=== PATIENT | female | born 1970 | race Caucasian/White ===

== ENCOUNTER 2018-01-27 16:16 | Inpatient (IN) | payer MEDICARE, MEDICAID ==
[~2018-01-27] VITALS: Ht 167.6 cm; Wt 77.7 kg
[~2018-01-27 16:16] MED LIST: DYCYCLOMINE; TRIA50CA40
[2018-01-27] MEDS ORDERED: SODIUM CHLORIDE 0.9% 1,000 ML IVB ONE (17:14)
[2018-01-27] MEDS ORDERED: ONDANSETRON HCL 4 MG/2 ML VIAL IV ONE (17:15)
[2018-01-27] MEDS ORDERED: MORPHINE SULF INJ 2 MG/ML SYRINGE 1ML ONE (17:29)
[2018-01-27] MEDS ORDERED: MORPHINE SULF INJ 2 MG/ML SYRINGE 1ML IV ONE ×2 (17:30→18:45)
[2018-01-27 17:33] LABS: Basophils # (auto) 0 uL; Basophils % (auto) 0.2 % (0.0-2.0); Eosinophils # (auto) 0 uL; Hematocrit 46.6 % (36.0-46.0); Hemoglobin 15.6 g/dL (12.2-16.2); Lymphocytes # (auto) 0.8 uL; Lymphocytes % (auto) 6.3 % (10.0-50.0); Mean Corpuscular Hemoglobin 30.3 pg (28.0-32.0); Mean Corpuscular Hgb Conc. 33.5 g/dL (32.0-36.0); Mean Corpuscular Volume 90.3 fL (80.0-100.0); Monocytes # (auto) 0.7 uL; Monocytes % (auto) 5.4 % (0.0-12.0); Neutrophils # (auto) 11.1 uL; Neutrophils % (auto) 88.1 % (37.0-80.0); Nucleated Red Blood Cells % 0.1 %; Platelet Count (auto) 331 10^3/uL (140-450); Red Blood Cells 5.15 10^6/uL (4.0-5.20); Red Cell Distribution Width 13.2 % (11.8-14.3); White Blood Cell 12.6 10^3/uL (4.4-10.8)
[2018-01-27 17:53] LABS: Alanine Aminotransferase 40 U/L (13-56); Albumin 3.6 g/dL (3.4-5.0); Alkaline Phosphatase 164 U/L (45-117); Anion Gap 8 (5-15); Aspartate Aminotransferase 26 U/L (15-37); BUN/Creatinine Ratio 7.1; Blood Urea Nitrogen 8 mg/dL (7-18); Calcium 9.5 mg/dL (8.5-10.1); Carbon Dioxide 34 mmol/L (21-32); Chloride 93 mmol/L (98-107); GFR African American 66 mL/min; GFR Non-African American 55 mL/min; Glucose 132 mg/dL (74-106); Lactic Acid w/Reflex 2.3 mmol/L (0.4-2.0); Potassium 3.4 mmol/L (3.5-5.1); Sodium 135 mmol/L (136-145); Total Protein 8.6 g/dL (6.4-8.2)
[2018-01-27 18:20] LABS: Magnesium 2.4 mg/dL (1.6-2.6)
[2018-01-27] MEDS ORDERED: PROMETHAZINE HCL 25 MG/ML 1ML IV ONE (18:45)
[2018-01-27] MEDS ORDERED: SODIUM CHLORIDE 0.9% 1,000 ML IV ONE (20:45)
[2018-01-27] MEDS ORDERED: cefTRIAXone 1GM/10ml IVPUSH 10 ML IV ONE (20:45)
[2018-01-27 20:50] LABS: INR 0.96 (0.9-1.15); Partial Thromboplastin Time 29.7 sec (23.78-33.04); Prothrombin Time 10.3 sec (9.27-12.13)
[2018-01-27] MEDS ORDERED: ACETAMINOPHEN 500 MG TAB PO PRN (21:45)
[2018-01-27] MEDS ORDERED: MEPERIDINE HCL (25 MG/ML) 1ML VIAL IV ONE ×2 (21:45)
[2018-01-27] MEDS ORDERED: ACETAMINOPHEN 325 MG TAB PO ONE (21:45)
[2018-01-27 22:15] LABS: Urine Bacteria FEW /hpf (None Seen); Urine Blood Negative /uL (Negative); Urine Specific Gravity 1.017 (1.001-1.035); Urine WBC 6 /hpf (0 - 5)
[2018-01-28] MEDS: SODIUM CHLORIDE 0.9% 1,000 ML IV SCH ×2 (00:03→11:05)
[2018-01-28] MEDS: AMITRIPTYLINE HCL 25 MG TAB PO SCH ×2 (00:13→21:40)
[2018-01-28] MEDS: QUEtiapine FUMARATE 100 MG TAB PO SCH ×2 (00:13→21:39)
[2018-01-28] MEDS: GABAPENTIN 300 MG CAP PO SCH ×3 (00:13→21:40)
[2018-01-28] MEDS: metroNIDAZOLE 500MG/100ML 100 ML IV SCH ×4 (00:13→21:40)
[2018-01-28] MEDS: HYDROcodone-ACET 5/325MG TAB PO PRN ×2 (00:34→08:50)
[2018-01-28] MEDS ORDERED: HYDROmorphone HCL 2 MG/ML VL IV ONE (02:00)
[2018-01-28] MEDS: LORazepam 0.5 MG TAB PO PRN ×2 (02:33→20:26)
[2018-01-28] MEDS ORDERED: cloNIDine HCL 0.1 MG TAB PO ONE (05:45)
[2018-01-28] MEDS: LEVOTHYROXINE SODIUM 25 MCG TAB PO SCH ×2 (07:00→08:01)
[2018-01-28 07:05] LABS: Basophils # (auto) 0.1 uL; Basophils % (auto) 0.6 % (0.0-2.0); Eosinophils # (auto) 0.2 uL; Eosinophils % (auto) 1.4 % (0.0-7.0); Hematocrit 41.5 % (36.0-46.0); Lymphocytes % (auto) 15.4 % (10.0-50.0); Mean Corpuscular Hemoglobin 30.6 pg (28.0-32.0); Mean Corpuscular Hgb Conc. 33.7 g/dL (32.0-36.0); Mean Corpuscular Volume 90.8 fL (80.0-100.0); Monocytes # (auto) 1.4 uL; Monocytes % (auto) 10.8 % (0.0-12.0); Neutrophils # (auto) 9.3 uL; Neutrophils % (auto) 71.8 % (37.0-80.0); Platelet Count (auto) 307 10^3/uL (140-450); Red Blood Cells 4.57 10^6/uL (4.0-5.20); Red Cell Distribution Width 13.3 % (11.8-14.3)
[2018-01-28 07:23] LABS: BUN/Creatinine Ratio 11.5; Calcium 8.5 mg/dL (8.5-10.1); Potassium 3.8 mmol/L (3.5-5.1)
[2018-01-28] MEDS: cefTRIAXone 1GM/10ml IVPUSH 10 ML IV SCH (08:50)
[2018-01-28] MEDS ORDERED: MORPHINE SULF INJ 2 MG/ML SYRINGE 1ML IV ONE (10:00)
[2018-01-28] MEDS ORDERED: ONDANSETRON HCL 4 MG/2 ML VIAL IV ONE (10:00)
[2018-01-28] MEDS: TRIAMTERENE/HCTZ 37.5/25 MG CAP/TAB PO SCH (10:23)
[2018-01-28] MEDS ORDERED: VANCOMYCIN PER PHARMACY 0 MG IV SCH (12:15)
[2018-01-28] MEDS: HYDROcodone-ACET 10/325MG TAB PO PRN ×2 (12:27→20:26)
[2018-01-28] MEDS: VANCOMYCIN 1GM/250ML 250 ML IV SCH (13:09)
[2018-01-28] MEDS ORDERED: TIZA4TAB9 PO (15:12)
[2018-01-28] MEDS ORDERED: ALPR1TAB7 PO (15:12)
[2018-01-28] MEDS ORDERED: AMI25T PO (15:12)
[2018-01-28] MEDS ORDERED: PREG75CA PO (15:12)
[2018-01-28] MEDS ORDERED: GABA-339 PO (15:12)
[2018-01-28 17:00] VITALS: BP 166/99
[2018-01-28] MEDS: cloNIDine HCL 0.1 MG TAB PO PRN ×2 (18:59→21:13)
[2018-01-28 20:25] VITALS: BP 162/100
[2018-01-28] MEDS: ONDANSETRON HCL 4 MG/2 ML VIAL IV PRN (20:26)
[2018-01-28] MEDS: TEMAZEPAM 15 MG CAP PO PRN (21:40)
[2018-01-28 22:30] VITALS: BP 162/100
[2018-01-29] MEDS: SODIUM CHLORIDE 0.9% 1,000 ML IV SCH ×2 (02:55→13:45)
[2018-01-29] MEDS: HYDROcodone-ACET 10/325MG TAB PO PRN ×3 (02:57→20:16)
[2018-01-29] MEDS: VANCOMYCIN 1GM/250ML 250 ML IV SCH (02:58)
[2018-01-29 05:28] VITALS: BP 120/81
[2018-01-29] MEDS: metroNIDAZOLE 500MG/100ML 100 ML IV SCH ×2 (05:28→14:00)
[2018-01-29 07:28] LABS: Hematocrit 38.8 % (36.0-46.0); Hemoglobin 12.9 g/dL (12.2-16.2); Mean Corpuscular Hemoglobin 29.8 pg (28.0-32.0); Mean Corpuscular Hgb Conc. 33.1 g/dL (32.0-36.0); Mean Corpuscular Volume 89.9 fL (80.0-100.0); Platelet Count (auto) 334 10^3/uL (140-450); Red Blood Cells 4.32 10^6/uL (4.0-5.20); Red Cell Distribution Width 13.4 % (11.8-14.3); White Blood Cell 12.9 10^3/uL (4.4-10.8)
[2018-01-29 07:37] LABS: Alanine Aminotransferase 35 U/L (13-56); Anion Gap 9 (5-15); Aspartate Aminotransferase 25 U/L (15-37); BUN/Creatinine Ratio 15.1; Blood Urea Nitrogen 11 mg/dL (7-18); Calcium 8.3 mg/dL (8.5-10.1); Carbon Dioxide 25 mmol/L (21-32); Chloride 101 mmol/L (98-107); GFR African American 110 mL/min; GFR Non-African American 91 mL/min; Glucose 98 mg/dL (74-106); Potassium 3.7 mmol/L (3.5-5.1); Sodium 135 mmol/L (136-145)
[2018-01-29 07:42] LABS: Band Neutrophils % (manual) 0; Basophils % (manual) 0 (0.0-2.0); Blast Cells 0; Metamyelocytes % 0; Myelocytes % 0; Promyelocytes % 0
[2018-01-29 07:45] LABS: Alkaline Phosphatase 197 U/L (45-117)
[2018-01-29] MEDS: LEVOTHYROXINE SODIUM 25 MCG TAB PO SCH (07:45)
[2018-01-29 07:47] LABS: Albumin 2.5 g/dL (3.4-5.0)
[2018-01-29 08:00] VITALS: BP 161/108
[2018-01-29] MEDS: MORPHINE SULFATE 4 MG/ML SYR/VIAL IV PRN ×2 (08:40→16:43)
[2018-01-29] MEDS: cefTRIAXone 1GM/10ml IVPUSH 10 ML IV SCH (09:00)
[2018-01-29 10:40] LABS: Eosinophils % (manual) 2 (0-7); Lymphocytes % (manual) 21 (10.0-50.0); Monocytes % (manual) 7 (0-12); Reactive Lymphocytes 2
[2018-01-29] MEDS: GABAPENTIN 300 MG CAP PO SCH ×2 (10:44→21:34)
[2018-01-29] MEDS: TRIAMTERENE/HCTZ 37.5/25 MG CAP/TAB PO SCH (10:45)
[2018-01-29 12:04] VITALS: BP 167/99
[2018-01-29] MEDS ORDERED: VANCOMYCIN 1GM/250ML 250 ML IV SCH (15:00)
[2018-01-29] MEDS: PIPERACILLIN-TAZOB 3.375GM 100 ML IV SCH (19:03)
[2018-01-29 20:07] VITALS: BP 167/89
[2018-01-29] MEDS: LORazepam 0.5 MG TAB PO PRN (20:15)
[2018-01-29] MEDS: ENOXAPARIN SOD 40 MG/0.4 ML SYRINGE SC SCH (20:25)
[2018-01-29] MEDS: AMITRIPTYLINE HCL 25 MG TAB PO SCH (21:34)
[2018-01-29] MEDS: QUEtiapine FUMARATE 100 MG TAB PO SCH (21:34)
[2018-01-29 22:00] VITALS: BP 167/89
[2018-01-29] MEDS: cloNIDine HCL 0.1 MG TAB PO PRN (22:31)
[2018-01-29] MEDS: TEMAZEPAM 15 MG CAP PO PRN (22:31)
[2018-01-30] MEDS: cloNIDine HCL 0.1 MG TAB PO PRN ×4 (00:36→21:33)
[2018-01-30] MEDS: HYDROcodone-ACET 10/325MG TAB PO PRN ×6 (00:36→22:57)
[2018-01-30] MEDS: SODIUM CHLORIDE 0.9% 1,000 ML IV SCH ×2 (03:05→16:25)
[2018-01-30 05:00] VITALS: BP 144/98
[2018-01-30] MEDS: PIPERACILLIN-TAZOB 3.375GM 100 ML IV SCH ×4 (05:43→18:00)
[2018-01-30] MEDS: LEVOTHYROXINE SODIUM 25 MCG TAB PO SCH (06:35)
[2018-01-30 08:00] VITALS: BP 168/105
[2018-01-30 09:00] VITALS: BP 168/105
[2018-01-30] MEDS: ENOXAPARIN SOD 40 MG/0.4 ML SYRINGE SC SCH (10:00)
[2018-01-30] MEDS: TRIAMTERENE/HCTZ 37.5/25 MG CAP/TAB PO SCH (10:47)
[2018-01-30] MEDS: GABAPENTIN 300 MG CAP PO SCH ×2 (10:47→21:08)
[2018-01-30 13:00] VITALS: BP 124/81
[2018-01-30 17:00] VITALS: BP 149/98
[2018-01-30] MEDS: LORazepam 0.5 MG TAB PO PRN ×2 (17:30→22:57)
[2018-01-30] MEDS: AMITRIPTYLINE HCL 25 MG TAB PO SCH (21:08)
[2018-01-30] MEDS: QUEtiapine FUMARATE 100 MG TAB PO SCH (21:09)
[2018-01-30] MEDS: MORPHINE SULFATE 4 MG/ML SYR/VIAL IV PRN (21:32)
[2018-01-30] MEDS: ONDANSETRON HCL 4 MG/2 ML VIAL IV PRN (21:41)
[2018-01-30 22:00] VITALS: BP 162/97
[2018-01-31] MEDS: PIPERACILLIN-TAZOB 3.375GM 100 ML IV SCH ×4 (00:23→17:51)
[2018-01-31] MEDS: TEMAZEPAM 15 MG CAP PO PRN ×2 (01:31→22:34)
[2018-01-31 05:00] VITALS: BP 101/70
[2018-01-31] MEDS: SODIUM CHLORIDE 0.9% 1,000 ML IV SCH ×2 (06:25→18:53)
[2018-01-31] MEDS: LEVOTHYROXINE SODIUM 25 MCG TAB PO SCH (06:26)
[2018-01-31 07:52] LABS: Basophils # (auto) 0 uL; Basophils % (auto) 0.5 % (0.0-2.0); Eosinophils # (auto) 0.1 uL; Eosinophils % (auto) 2.1 % (0.0-7.0); Hematocrit 42.3 % (36.0-46.0); Hemoglobin 14.1 g/dL (12.2-16.2); Lymphocytes # (auto) 1.4 uL; Lymphocytes % (auto) 20.5 % (10.0-50.0); Mean Corpuscular Hemoglobin 29.6 pg (28.0-32.0); Mean Corpuscular Hgb Conc. 33.3 g/dL (32.0-36.0); Mean Corpuscular Volume 88.9 fL (80.0-100.0); Monocytes # (auto) 0.7 uL; Neutrophils # (auto) 4.6 uL; Neutrophils % (auto) 66.9 % (37.0-80.0); Platelet Count (auto) 438 10^3/uL (140-450); Red Blood Cells 4.76 10^6/uL (4.0-5.20); Red Cell Distribution Width 13.2 % (11.8-14.3); White Blood Cell 6.9 10^3/uL (4.4-10.8)
[2018-01-31 08:00] VITALS: BP 120/76
[2018-01-31 08:13] LABS: BUN/Creatinine Ratio 22.1; Calcium 8.9 mg/dL (8.5-10.1)
[2018-01-31] MEDS ORDERED: IOHEXOL 300 MG/ML 100ML BOTTLE IJ ONE (08:43)
[2018-01-31 09:00] VITALS: BP 120/76
[2018-01-31] MEDS: GABAPENTIN 300 MG CAP PO SCH ×2 (10:06→22:34)
[2018-01-31] MEDS: ENOXAPARIN SOD 40 MG/0.4 ML SYRINGE SC SCH (10:06)
[2018-01-31] MEDS: TRIAMTERENE/HCTZ 37.5/25 MG CAP/TAB PO SCH (10:06)
[2018-01-31] MEDS: ONDANSETRON HCL 4 MG/2 ML VIAL IV PRN ×3 (10:09→21:05)
[2018-01-31] MEDS: MORPHINE SULFATE 4 MG/ML SYR/VIAL IV PRN ×3 (10:11→21:05)
[2018-01-31] MEDS ORDERED: NEOSTIGMINE 1 MG/ML INJ (10mg/10ML VIAL) IV ONE (12:35)
[2018-01-31] MEDS ORDERED: GLYCOPYRROLATE 0.2 MG/ML 1ML VIAL IV ONE (12:35)
[2018-01-31] MEDS ORDERED: fentaNYL CITRATE 5 ML ONE (12:49)
[2018-01-31] MEDS ORDERED: LIDOCAINE 1% (LOCAL ANESTH.) PF 5ml SDV ONE (12:49)
[2018-01-31] MEDS ORDERED: MIDAZOLAM HCL 1MG/1ML-2 ML VIAL ONE (12:49)
[2018-01-31] MEDS ORDERED: PROPOFOL 10 MG/ML 20 ML IV ONE (12:50)
[2018-01-31] MEDS ORDERED: ROCURONIUM 10MG/ML 10ML VIAL IV ONE (12:51)
[2018-01-31] MEDS ORDERED: LABETALOL HCL 5 MG/ML ML 20ML VIAL IV ONE (13:10)
[2018-01-31] MEDS ORDERED: ONDANSETRON HCL 4 MG/2 ML VIAL IV ONE (13:45)
[2018-01-31] MEDS ORDERED: hydrALAZINE HCL 20 MG/ML VL IV PRN (13:45)
[2018-01-31] MEDS ORDERED: HYDROmorphone HCL 2 MG/ML VL IV PRN (13:45)
[2018-01-31] MEDS ORDERED: ePHEDrine SULFATE 50 MG/ML AMP IV PRN (13:45)
[2018-01-31 18:00] VITALS: BP 160/93
[2018-01-31] MEDS ORDERED: POTASSIUM CHL 20 Meq TABLET PO ONE (20:00)
[2018-01-31 21:30] VITALS: BP 142/92
[2018-01-31] MEDS: QUEtiapine FUMARATE 100 MG TAB PO SCH (22:34)
[2018-01-31] MEDS: AMITRIPTYLINE HCL 25 MG TAB PO SCH (22:34)
[2018-02-01] MEDS: PIPERACILLIN-TAZOB 3.375GM 100 ML IV SCH ×2 (00:13→05:55)
[2018-02-01] MEDS: ONDANSETRON HCL 4 MG/2 ML VIAL IV PRN (01:11)
[2018-02-01 01:16] LABS: Urine Bacteria NONE SEEN /hpf (None Seen); Urine Blood Negative /uL (Negative); Urine Budding Yeast OCCASIONAL /hpf (None Seen); Urine Specific Gravity 1.027 (1.001-1.035); Urine WBC 1 /hpf (0 - 5)
[2018-02-01] MEDS: LORazepam 0.5 MG TAB PO PRN (04:48)
[2018-02-01 05:00] VITALS: BP 159/97
[2018-02-01] MEDS: LEVOTHYROXINE SODIUM 25 MCG TAB PO SCH (06:17)
[2018-02-01] MEDS ORDERED: HYDROcodone-ACET 10/325MG TAB PO PRN (07:45)
[2018-02-01] MEDS ORDERED: MORPHINE SULFATE 4 MG/ML SYR/VIAL IV PRN (07:45)
[2018-02-01] MEDS: SODIUM CHLORIDE 0.9% 1,000 ML IV SCH ×2 (08:25→21:22)
[2018-02-01 09:00] VITALS: BP 164/96
[2018-02-01] MEDS: PROMETHAZINE HCL 25 MG/ML 1ML IV PRN ×3 (09:27→21:40)
[2018-02-01 09:29] LABS: Albumin 2.7 g/dL (3.4-5.0); BUN/Creatinine Ratio 19.4; Bilirubin, Total 1.1 mg/dL (0.2-1.0); Calcium 8.9 mg/dL (8.5-10.1); Total Protein 7.5 g/dL (6.4-8.2)
[2018-02-01] MEDS: ENOXAPARIN SOD 40 MG/0.4 ML SYRINGE SC SCH (10:00)
[2018-02-01] MEDS: GABAPENTIN 300 MG CAP PO SCH ×2 (10:00→21:40)
[2018-02-01] MEDS: TRIAMTERENE/HCTZ 37.5/25 MG CAP/TAB PO SCH ×2 (10:00→15:32)
[2018-02-01 13:00] VITALS: BP 165/95
[2018-02-01 17:00] VITALS: BP 154/90
[2018-02-01] MEDS: QUEtiapine FUMARATE 100 MG TAB PO SCH (21:40)
[2018-02-01] MEDS: AMITRIPTYLINE HCL 25 MG TAB PO SCH (21:40)
[2018-02-01 22:00] VITALS: BP 167/98
[2018-02-02 05:00] VITALS: BP_SYST 148; BP_SYST 169; BP_DIAS 106; BP_DIAS 92
[2018-02-02] MEDS: PROMETHAZINE HCL 25 MG/ML 1ML IV PRN (05:11)
[2018-02-02] MEDS: LEVOTHYROXINE SODIUM 25 MCG TAB PO SCH (06:38)
[2018-02-02 08:24] LABS: Basophils # (auto) 0.1 uL; Basophils % (auto) 0.5 % (0.0-2.0); Eosinophils # (auto) 0 uL; Eosinophils % (auto) 0.2 % (0.0-7.0); Hematocrit 41.3 % (36.0-46.0); Hemoglobin 13.9 g/dL (12.2-16.2); Lymphocytes # (auto) 2.1 uL; Lymphocytes % (auto) 19.7 % (10.0-50.0); Mean Corpuscular Hemoglobin 30.2 pg (28.0-32.0); Mean Corpuscular Hgb Conc. 33.6 g/dL (32.0-36.0); Mean Corpuscular Volume 90.2 fL (80.0-100.0); Monocytes # (auto) 0.7 uL; Monocytes % (auto) 6.4 % (0.0-12.0); Neutrophils # (auto) 7.9 uL; Neutrophils % (auto) 73.2 % (37.0-80.0); Nucleated Red Blood Cells % 0.1 %; Platelet Count (auto) 532 10^3/uL (140-450); Red Blood Cells 4.59 10^6/uL (4.0-5.20); Red Cell Distribution Width 13.2 % (11.8-14.3); White Blood Cell 10.8 10^3/uL (4.4-10.8)
[2018-02-02 09:03] VITALS: BP 157/89
[2018-02-02] MEDS: GABAPENTIN 300 MG CAP PO SCH (10:00)
[2018-02-02] MEDS: ENOXAPARIN SOD 40 MG/0.4 ML SYRINGE SC SCH (10:00)
[2018-02-02 11:02] LABS: Albumin 2.8 g/dL (3.4-5.0); BUN/Creatinine Ratio 26.7; Bilirubin, Total 0.9 mg/dL (0.2-1.0); Calcium 8.6 mg/dL (8.5-10.1); Total Protein 7.3 g/dL (6.4-8.2)
[2018-02-02 11:05] LABS: Potassium 2.9 mmol/L (3.5-5.1)
[2018-02-02 13:00] VITALS: BP 166/100
[2018-02-02] MEDS ORDERED: POTASSIUM CHL 20 Meq TABLET PO ONE (13:45)
[2018-02-02] MEDS: TRIAMTERENE/HCTZ 37.5/25 MG CAP/TAB PO SCH (14:31)
[2018-02-02 17:13] VITALS: BP 166/100
[2018-02-02 17:20] VITALS: BP 185/99
[2018-02-02] MEDS: cloNIDine HCL 0.1 MG TAB PO PRN (17:36)
== END 2018-02-02 18:54 | disposition home or self-care (01) | DRG 871 ==
LOC: EDBD 16:16 → ER 16:20 → TELE 16:21 → TELE-CENTR 01-28 17:11
PROVIDERS: ADMIT Nurse Practitioner Family
PROC: BF101ZZ Fluoroscopy of Bile Ducts using Low Osmolar Contrast (ICD-10-PCS; 2018-01-31)
PROC: 0F798DZ Dilation of Common Bile Duct with Intraluminal Device, Via Natural or Artificial Opening Endoscopic (ICD-10-PCS; principal; 2018-01-31 12:35)
DX: A41.9 Sepsis, unspecified organism (principal); N17.0 Acute kidney failure with tubular necrosis; N39.0 Urinary tract infection, site not specified; E87.1 Hypo-osmolality and hyponatremia; N17.9 Acute kidney failure, unspecified; G90.50 Complex regional pain syndrome I, unspecified; N18.3 Chronic kidney disease, stage 3 (moderate); K29.70 Gastritis, unspecified, without bleeding; E78.5 Hyperlipidemia, unspecified; N83.8 Other noninflammatory disorders of ovary, fallopian tube and broad ligament; I12.9 Hypertensive chronic kidney disease with stage 1 through stage 4 chronic kidney disease, or unspecified chronic kidney disease; Z90.49 Acquired absence of other specified parts of digestive tract; Z90.710 Acquired absence of both cervix and uterus; Z88.2 Allergy status to sulfonamides
CPT/HCPCS: 36415; 71045; 74018; 74176; 76000; 76830; 76856; 78226; 80048; 80053; 80202; 81001; 82150; 83605; 83690; 83735; 84484; 84702; 85007; 85025; 85027; 85610; 85730; 86850; 86900; 86901; 87040; 87081; 87086; 87088; 87186; 93005; 94761; 96361; 96374; 96375; 96376; J0696; J2250; J2405; J2543; J2704; J3490

== ENCOUNTER 2019-08-17 00:54 | Emergency (ER) | payer MEDICARE, MEDICAID ==
[~2019-08-17 00:54] MED LIST changes: +AMI25T PO; +DICY20TA66 PO; -DYCYCLOMINE; +LUBI24CA6 PO; +METO-281 PO; +OXY10CRT PO; +PANT40T PO; +PREG75CA PO; +QUET50TA PO; +TIZA4TAB9 PO; -TRIA50CA40
== END 2019-08-17 01:42 | disposition left against medical advice (07) ==
LOC: ER 00:54 → EDBD 00:54 → ER 01:42
DX: R10.9 Unspecified abdominal pain (principal); Z53.21 Procedure and treatment not carried out due to patient leaving prior to being seen by health care provider

== ENCOUNTER 2021-04-14 15:29 | Emergency (ER) | payer MEDICARE, MEDICAID ==
[~2021-04-14] VITALS: Ht 165.1 cm; Wt 77.1 kg
[~2021-04-14 15:29] MED LIST changes: -AMI25T PO; +AMIT1TAB35 PO; +DICY20TA PO; -DICY20TA66 PO
[2021-04-14 16:04] LABS: Basophils # (auto) 0.1 10 ^3/uL (0-0.2); Basophils % (auto) 0.9 % (0.0-2.0); Eosinophils # (auto) 0 10 ^3/uL (0-0.8); Eosinophils % (auto) 0.6 % (0.0-7.0); Hematocrit 49.5 % (36.0-46.0); Hemoglobin 16.2 g/dL (12.2-16.2); Lymphocytes # (auto) 2.6 10 ^3/uL (0.4-5.4); Lymphocytes % (auto) 36.1 % (10.0-50.0); Mean Corpuscular Hemoglobin 30.1 pg (28.0-32.0); Mean Corpuscular Hgb Conc. 32.8 g/dL (32.0-36.0); Mean Corpuscular Volume 91.9 fL (80.0-100.0); Monocytes # (auto) 0.9 10 ^3/uL (0-1.3); Monocytes % (auto) 12.3 % (0.0-12.0); Neutrophils # (auto) 3.6 10 ^3/uL (1.6-8.6); Neutrophils % (auto) 50.1 % (37.0-80.0); Nucleated Red Blood Cells % 0.1 %; Red Blood Cells 5.38 10^6/uL (4.0-5.20); Red Cell Distribution Width 13.2 % (11.8-14.3); White Blood Cell 7.1 10^3/uL (4.4-10.8)
[2021-04-14 16:27] LABS: Albumin 3.8 g/dL (3.4-5.0); BUN/Creatinine Ratio 5.5; Calcium 9.4 mg/dL (8.5-10.1); Potassium 3.7 mmol/L (3.5-5.1)
[2021-04-14] MEDS ORDERED: IOHEXOL 300 MG/ML 100ML BOTTLE IJ ONE (16:31)
[2021-04-14 16:34] LABS: Bilirubin, Total 0.4 mg/dL (0.2-1.0); Total Protein 7.5 g/dL (6.4-8.2)
[2021-04-14 20:17] VITALS: BP 120/80
== END 2021-04-14 20:58 | disposition home or self-care (01) ==
LOC: ER 15:29
DX: K52.9 Noninfective gastroenteritis and colitis, unspecified (principal); K57.30 Diverticulosis of large intestine without perforation or abscess without bleeding; I10 Essential (primary) hypertension; E78.5 Hyperlipidemia, unspecified; Z90.49 Acquired absence of other specified parts of digestive tract; Z90.710 Acquired absence of both cervix and uterus; Z79.899 Other long term (current) drug therapy; Z88.2 Allergy status to sulfonamides
CPT/HCPCS: 36415; 74177; 80053; 82150; 83690; 85025; 93005; 99285; Q9967